=== PATIENT | female | born 1965 | race Caucasian/White ===

== ENCOUNTER 2019-04-27 07:26 | Inpatient (IN) | payer MEDICAID ==
[~2019-04-27 07:26] MED LIST: Midazolam 1 MG/ML 2 ML SDV ONE; Povidone-Iodine 10% Soln 118.25 ML Bottle ONE; Propofol 200 MG/20 ML SDV ONE; fentaNYL 100 MCG/2 ML SDV ONE
[2019-04-27] MEDS ORDERED: Lactated Ringers 1,000 ML IV SCH (07:45)
[2019-04-27] MEDS: Nozin Nasal Sanitizer NASBOTH SCH ×2 (08:16→20:38)
[2019-04-27] MEDS ORDERED: Albuterol/Ipratropium 3.0-0.5 MG/3 ML Neb Soln NEB ONE (08:43)
[2019-04-27] MEDS: Tranexamic Acid 860 MG in Sodium Chloride 0.9% 50 ML IV ONE ×2 (09:29→14:28)
[2019-04-27] MEDS: ceFAZolin 2 GM in Sodium Chloride 0.9% 50 ML IV ONE ×2 (09:30→14:30)
[2019-04-27] MEDS ORDERED: ePHEDrine 50 MG/ML SDV ONE (10:04)
[2019-04-27] MEDS ORDERED: Lactated Ringers 1,000 ML ONE (10:06)
[2019-04-27] MEDS ORDERED: Propofol 200 MG/20 ML SDV ONE (10:46)
[2019-04-27] MEDS ORDERED: Acetaminophen/HYDROcodone 325-5 MG Tab PO PRN (11:09)
[2019-04-27] MEDS ORDERED: Acetaminophen 325 MG Tab PO PRN (11:09)
[2019-04-27] MEDS ORDERED: Acetaminophen/oxyCODONE 325-5 MG Tab PO PRN (11:09)
[2019-04-27] MEDS ORDERED: Magnesium Hydroxide 400 MG/5 ML Susp 30 ML Cup PO PRN ×2 (11:09→12:19)
[2019-04-27] MEDS ORDERED: Ondansetron 4 MG/2 ML SDV IVPUSH PRN ×2 (11:09→12:19)
[2019-04-27] MEDS ORDERED: Morphine 2 MG/ML Syringe IVPUSH PRN (11:09)
[2019-04-27] MEDS ORDERED: Sodium Chloride 0.9% 1,000 ML IV SCH (11:15)
[2019-04-27] MEDS ORDERED: ceFAZolin 1 GM in Sodium Chloride 0.9% 50 ML IV SCH (11:15)
[2019-04-27] MEDS ORDERED: Nicotine 21 MG/24 Hr Patch TRDERM ONE ×2 (11:17→13:15)
[2019-04-27] MEDS ORDERED: Tranexamic Acid 860 MG in Sodium Chloride 0.9% 50 ML IV PRN (12:00)
[2019-04-27] MEDS ORDERED: LORazepam 0.5 MG Tab PO PRN ×2 (12:14→12:19)
[2019-04-27] MEDS: Morphine 2 MG/ML Syringe IVPUSH PRN ×4 (12:59→16:20)
[2019-04-27] MEDS: Acetaminophen/oxyCODONE 325-5 MG Tab PO PRN (13:45)
--- NOTE | 2019-04-27 14:17 | CRLCR ---
INDICATION: Postoperative right hip. COMPARISON: 02/07/2019. TECHNIQUE: Single AP right hip. FINDINGS: The patient is status post right hip arthroplasty. Gas is seen within the joint space and subcutaneous soft tissues compatible with immediately postop, or recent surgery. Bilateral tubal ligation. Vascular calcifications. IMPRESSION: Status post right hip arthroplasty. Dictated by Lukas Shafer MD @ Apr 27 2019 2:13PM (Electronically Signed)
[2019-04-27] MEDS: Acetaminophen/HYDROcodone 325-5 MG Tab PO PRN ×2 (17:23→20:38)
[2019-04-27] MEDS: ceFAZolin 1 GM in Premix Bag 1 BAG IV SCH (17:23)
[2019-04-27] MEDS: Sodium Chloride 0.9% 1,000 ML IV SCH (19:53)
[2019-04-27] MEDS: Docusate Sodium 100 MG Cap PO SCH (20:39)
[2019-04-27] MEDS ORDERED: Docusate Sodium 100 MG Cap PO SCH (21:00)
[2019-04-28] MEDS: ceFAZolin 1 GM in Premix Bag 1 BAG IV SCH ×2 (00:59→09:20)
[2019-04-28] MEDS: Acetaminophen 325 MG Tab PO PRN ×2 (01:00→11:24)
[2019-04-28] MEDS: Sodium Chloride 0.9% 1,000 ML IV SCH (04:09)
[2019-04-28] MEDS: Acetaminophen/HYDROcodone 325-5 MG Tab PO PRN ×3 (04:13→13:35)
[2019-04-28] MEDS: Nozin Nasal Sanitizer NASBOTH SCH ×2 (08:44→20:53)
[2019-04-28] MEDS ORDERED: Enoxaparin 30 MG/0.3 ML Syringe SUBCUT SCH (09:00)
[2019-04-28] MEDS: Docusate Sodium 100 MG Cap PO SCH ×2 (09:20→20:52)
[2019-04-28] MEDS: Enoxaparin 30 MG/0.3 ML Syringe SUBCUT SCH (09:20)
[2019-04-28] MEDS: Nicotine 21 MG/24 Hr Patch TRDERM SCH (11:27)
[2019-04-28] MEDS ORDERED: Sodium Chloride 0.9% 10 ML Syringe FLUSH PRN (13:24)
[2019-04-28] MEDS: Acetaminophen/oxyCODONE 325-5 MG Tab PO PRN ×2 (16:51→20:52)
[2019-04-29] MEDS: Acetaminophen/oxyCODONE 325-5 MG Tab PO PRN ×5 (01:25→21:19)
[2019-04-29] MEDS: Nicotine 21 MG/24 Hr Patch TRDERM SCH (08:12)
[2019-04-29] MEDS: Enoxaparin 30 MG/0.3 ML Syringe SUBCUT SCH (08:12)
[2019-04-29] MEDS: Docusate Sodium 100 MG Cap PO SCH ×2 (08:12→21:19)
[2019-04-29] MEDS: Nozin Nasal Sanitizer NASBOTH SCH ×2 (09:00→21:20)
--- NOTE | 2019-04-29 14:22 | PCM.SURGPN ---
- General Info Date of Service: 04/28/19 Date of Surgery/Procedure: 04/27/19 POD#: 1 Functional Status: Reports: Pain Controlled, Tolerating Diet, Other (pain fairly well controlled) - Review of Systems General: Reports: No Symptoms HEENT: Reports: No Symptoms Pulmonary: Reports: No Symptoms Cardiovascular: Reports: No Symptoms Gastrointestinal: Reports: No Symptoms Musculoskeletal: Reports: Leg Pain Skin: Reports: No Symptoms Neurological: Reports: No Symptoms Psychiatric: Reports: No Symptoms - Patient Data Vitals - Most Recent: Last Vital Signs Temp 38.0 C 04/29/19 12:00 Pulse 85 04/29/19 12:00 Resp 18 04/29/19 12:00 BP 122/69 04/29/19 12:00 Pulse Ox 94 L 04/29/19 12:00 Weight - Most Recent: 83.915 kg I&O - Last 24 Hours: Intake & Output 04/28/19 04/29/19 04/29/19 22:59 06:59 14:59 Intake Total 400 600 300 Balance 400 600 300 Med Orders - Current: Current Medications Acetaminophen (Tylenol) 650 mg PO Q4H PRN PRN Reason: Pain/Fever Last Admin: 04/28/19 11:24 Dose: 650 mg Hydrocodone Bitart/Acetaminophen ([place] 325-5 Mg) 1 tab PO Q3H PRN PRN Reason: Pain Last Admin: 04/28/19 13:35 Dose: 1 tab Bandage/Support Products ( Nasal Applique Cutter) 1 applic NASBOTH BID [facility] Last Admin: 04/29/19 09:00 Dose: 1 applic Docusate Sodium (Colace) 100 mg PO BID [facility] Last Admin: 04/29/19 08:12 Dose: 100 mg Enoxaparin Sodium (Lovenox) 30 mg SUBCUT DAILY [facility] Last Admin: 04/29/19 08:12 Dose: 30 mg Lorazepam (Ativan) 0.5 mg PO TID PRN PRN Reason: Anxiety Last Admin: 04/27/19 17:30 Dose: 0.5 mg Magnesium Hydroxide (Milk Of Magnesia) 30 ml PO BID PRN PRN Reason: Constipation Morphine Sulfate (Morphine) 2 mg IVPUSH Q1H PRN PRN Reason: Breakthrough Pain Last Admin: 04/27/19 16:20 Dose: 2 mg Nicotine (Habitrol) 21 mg TRDERM DAILY [facility] Last Admin: 04/29/19 08:12 Dose: 21 mg Ondansetron HCl (Zofran) 4 mg IVPUSH Q6H PRN PRN Reason: Nausea/Vomiting Last Admin: 04/27/19 17:28 Dose: 4 mg Oxycodone/Acetaminophen (Percocet 325-5 Mg) 2 tab PO Q4H PRN PRN Reason: Pain Last Admin: 04/29/19 12:55 Dose: 2 tab Sodium Chloride (Saline Flush) 10 ml FLUSH ASDIRECTED PRN PRN Reason: Keep Vein Open Discontinued Medications Acetaminophen (Tylenol) 650 mg PO Q4H PRN PRN Reason: Pain/Fever Hydrocodone Bitart/Acetaminophen ([place] 325-5 Mg) 1 tab PO Q3H PRN PRN Reason: Pain Albuterol/Ipratropium (Duoneb 3.0-0.5 Mg/3 Ml) 3 ml NEB ONETIME ONE Stop: 04/27/19 08:44 Last Admin: 04/27/19 08:56 Dose: 3 ml Docusate Sodium (Colace) 100 mg PO BID [facility] Enoxaparin Sodium (Lovenox) 30 mg SUBCUT DAILY [facility] Ephedrine Sulfate (Ephedrine Sulfate) Confirm Administered Dose 50 mg .ROUTE .STK-MED ONE Stop: 04/27/19 10:05 Fentanyl (Sublimaze) Confirm Administered Dose 100 mcg .ROUTE .STK-MED ONE Stop: 04/27/19 07:21 Cefazolin Sodium 2 gm/ Sodium (Chloride) 50 mls @ 100 mls/hr IV ONETIME ONE Stop: 04/27/19 13:04 Last Admin: 04/27/19 14:30 Dose: Not Given Lactated Ringer's (Ringers, Lactated) 1,000 mls @ 75 mls/hr IV ASDIRECTED [facility] Last Admin: 04/27/19 08:51 Dose: 75 mls/hr Tranexamic Acid 860 mg/ Sodium (Chloride) 58.6 mls @ 234.4 mls/hr IV ONETIME ONE Stop: 04/27/19 09:14 Last Admin: 04/27/19 14:28 Dose: Not Given Tranexamic Acid 860 mg/ Sodium (Chloride) 58.6 mls @ 234.4 mls/hr IV ONETIME PRN PRN Reason: PER PROVIDER Stop: 04/27/19 14:00 Lactated Ringer's (Ringers, Lactated) Confirm Administered Dose 1,000 mls @ as directed .ROUTE .STK-MED ONE Stop: 04/27/19 10:07 Cefazolin Sodium 1 gm/ Sodium (Chloride) 50 mls @ 200 mls/hr IV Q8H [facility] Stop: 04/28/19 03:29 Last Admin: 04/27/19 14:39 Dose: Not Given Sodium Chloride (Normal Saline) 1,000 mls @ 125 mls/hr IV ASDIRECTED [facility] Cefazolin Sodium/Dextrose 1 gm (/ Premix) 50 mls @ 200 mls/hr IV Q8H [facility] Stop: 04/28/19 10:14 Last Admin: 04/28/19 09:20 Dose: 200 mls/hr Sodium Chloride (Normal Saline) 1,000 mls @ 125 mls/hr IV ASDIRECTED [facility] Last Admin: 04/28/19 04:09 Dose: 125 mls/hr Lorazepam (Ativan) 0.5 mg PO TID PRN PRN Reason: Anxiety Magnesium Hydroxide (Milk Of Magnesia) 30 ml PO BID PRN PRN Reason: Constipation Midazolam HCl (Versed 1 Mg/Ml) Confirm Administered Dose 2 mg .ROUTE .STK-MED ONE Stop: 04/27/19 07:21 Morphine Sulfate (Morphine) 2 mg IVPUSH Q1H PRN PRN Reason: Breakthrough Pain Nicotine (Habitrol) 21 mg TRDERM ONETIME ONE Stop: 04/27/19 11:18 Last Admin: 04/27/19 14:39 Dose: Not Given Nicotine (Habitrol) 21 mg TRDERM ONETIME ONE Stop: 04/27/19 13:16 Last Admin: 04/27/19 14:39 Dose: 21 mg Ondansetron HCl (Zofran) 4 mg IVPUSH Q6H PRN PRN Reason: Nausea/Vomiting Oxycodone/Acetaminophen (Percocet 325-5 Mg) 2 tab PO Q4H PRN PRN Reason: Pain Povidone Iodine (Betadine 10% Soln) Confirm Administered Dose 1 ml .ROUTE .STK- MED ONE Stop: 04/27/19 06:37 Last Admin: 04/27/19 10:13 Dose: 40 ml Propofol (Diprivan 20 Ml) Confirm Administered Dose 200 mg .ROUTE .STK-MED ONE Stop: 04/27/19 07:21 Propofol (Diprivan 20 Ml) Confirm Administered Dose 200 mg .ROUTE .STK-MED ONE Stop: 04/27/19 10:47 - Exam Wound/Incisions: Dressing Dry and Intact General: Alert, Oriented HEENT: Pupils Equal Neck: Supple Lungs: Clear to Auscultation, Normal Respiratory Effort Cardiovascular: Regular Rate, Regular Rhythm GI/Abdominal Exam: Normal Bowel Sounds, Soft, No Distention Extremities: No Pedal Edema, Other (Elizabeth's negative.) Skin: Warm, Dry, Intact Neurological: No New Focal Deficit Psy/Mental Status: Alert, Normal Affect, Normal Mood - Problem List & Annotations (1) Osteoarthritis of right hip SNOMED Code(s): 747501460471738 Code(s): M16.11 - UNILATERAL PRIMARY OSTEOARTHRITIS, RIGHT HIP Status: Acute Current Visit: Yes Qualifiers: Osteoarthritis type: primary Qualified Code(s): M16.11 - Unilateral primary osteoarthritis, right hip (2) Status post total hip replacement, right SNOMED Code(s): 538284349822, 219561741670 Code(s): Z96.641 - PRESENCE OF RIGHT ARTIFICIAL HIP JOINT Status: Acute Current Visit: Yes - Problem List Review Problem List Initiated/Reviewed/Updated: Yes - My Orders Last 24 Hours: Active Orders 24 hr Category Date Time Status Sodium Chloride 0.9% [Saline Flush] Med 04/28/19 13:24 Active 10 ml FLUSH ASDIRECTED PRN Saline Lock Insert [OM.PC] Routine Oth 04/28/19 13:24 Ordered Medication Orders Acetaminophen (Tylenol) 650 mg PO Q4H PRN PRN Reason: Pain/Fever Last Admin: 04/28/19 11:24 Dose: 650 mg Admin: 04/28/19 01:00 Dose: 650 mg Hydrocodone Bitart/Acetaminophen ([place] 325-5 Mg) 1 tab PO Q3H PRN PRN Reason: Pain Last Admin: 04/28/19 13:35 Dose: 1 tab Admin: 04/28/19 07:35 Dose: 1 tab Admin: 04/28/19 04:13 Dose: 1 tab Admin: 04/27/19 20:38 Dose: 1 tab Admin: 04/27/19 17:23 Dose: 1 tab Bandage/Support Products ( Nasal Applique Cutter) 1 applic NASBOTH BID [facility] Last Admin: 04/29/19 09:00 Dose: 1 applic Admin: 04/28/19 20:53 Dose: 1 applic Admin: 04/28/19 08:44 Dose: 1 applic Admin: 04/27/19 20:38 Dose: 1 applic Admin: 04/27/19 08:16 Dose: 1 applic Docusate Sodium (Colace) 100 mg PO BID [facility] Last Admin: 04/29/19 08:12 Dose: 100 mg Admin: 04/28/19 20:52 Dose: 100 mg Admin: 04/28/19 09:20 Dose: 100 mg Admin: 04/27/19 20:39 Dose: 100 mg Enoxaparin Sodium (Lovenox) 30 mg SUBCUT DAILY [facility] Last Admin: 04/29/19 08:12 Dose: 30 mg Admin: 04/28/19 09:20 Dose: 30 mg Lorazepam (Ativan) 0.5 mg PO TID PRN PRN Reason: Anxiety Last Admin: 04/27/19 17:30 Dose: 0.5 mg Magnesium Hydroxide (Milk Of Magnesia) 30 ml PO BID PRN PRN Reason: Constipation Morphine Sulfate (Morphine) 2 mg IVPUSH Q1H PRN PRN Reason: Breakthrough Pain Last Admin: 04/27/19 16:20 Dose: 2 mg Admin: 04/27/19 15:19 Dose: 2 mg Admin: 04/27/19 14:21 Dose: 2 mg Admin: 04/27/19 12:59 Dose: 2 mg Nicotine (Habitrol) 21 mg TRDERM DAILY [facility] Last Admin: 04/29/19 08:12 Dose: 21 mg Admin: 04/28/19 11:27 Dose: 21 mg Ondansetron HCl (Zofran) 4 mg IVPUSH Q6H PRN PRN Reason: Nausea/Vomiting Last Admin: 04/27/19 17:28 Dose: 4 mg Oxycodone/Acetaminophen (Percocet 325-5 Mg) 2 tab PO Q4H PRN PRN Reason: Pain Last Admin: 04/29/19 12:55 Dose: 2 tab Admin: 04/29/19 06:57 Dose: 2 tab Admin: 04/29/19 01:25 Dose: 2 tab Admin: 04/28/19 20:52 Dose: 2 tab Admin: 04/28/19 16:51 Dose: 2 tab Admin: 04/27/19 13:45 Dose: 2 tab Sodium Chloride (Saline Flush) 10 ml FLUSH ASDIRECTED PRN PRN Reason: Keep Vein Open - Assessment Assessment (Free Text/Narrative):: Tolerated procedure well, trying to find best regimen for pain control, has been out of bed - Plan Plan (Free Text/Narrative):: D/C [place], saline lock IV, continue OT/PT
--- NOTE | 2019-04-29 14:25 | PCM.SURGPN ---
- General Info Date of Service: 04/29/19 Date of Surgery/Procedure: 04/27/19 POD#: 2 Functional Status: Reports: Pain Controlled, Tolerating Diet, Ambulating, Urinating - Review of Systems General: Reports: No Symptoms HEENT: Reports: No Symptoms Pulmonary: Reports: No Symptoms Cardiovascular: Reports: No Symptoms Gastrointestinal: Reports: No Symptoms Genitourinary: Reports: No Symptoms Musculoskeletal: Reports: Leg Pain Skin: Reports: No Symptoms Neurological: Reports: No Symptoms Psychiatric: Reports: No Symptoms - Patient Data Vitals - Most Recent: Last Vital Signs Temp 38.0 C 04/29/19 12:00 Pulse 85 04/29/19 12:00 Resp 18 04/29/19 12:00 BP 122/69 04/29/19 12:00 Pulse Ox 94 L 04/29/19 12:00 Weight - Most Recent: 83.915 kg I&O - Last 24 Hours: Intake & Output 04/28/19 04/29/19 04/29/19 22:59 06:59 14:59 Intake Total 400 600 300 Balance 400 600 300 Med Orders - Current: Current Medications Acetaminophen (Tylenol) 650 mg PO Q4H PRN PRN Reason: Pain/Fever Last Admin: 04/28/19 11:24 Dose: 650 mg Hydrocodone Bitart/Acetaminophen ([place] 325-5 Mg) 1 tab PO Q3H PRN PRN Reason: Pain Last Admin: 04/28/19 13:35 Dose: 1 tab Bandage/Support Products ( Nasal Sleep Manager) 1 applic NASBOTH BID [facility] Last Admin: 04/29/19 09:00 Dose: 1 applic Docusate Sodium (Colace) 100 mg PO BID [facility] Last Admin: 04/29/19 08:12 Dose: 100 mg Enoxaparin Sodium (Lovenox) 30 mg SUBCUT DAILY [facility] Last Admin: 04/29/19 08:12 Dose: 30 mg Lorazepam (Ativan) 0.5 mg PO TID PRN PRN Reason: Anxiety Last Admin: 04/27/19 17:30 Dose: 0.5 mg Magnesium Hydroxide (Milk Of Magnesia) 30 ml PO BID PRN PRN Reason: Constipation Morphine Sulfate (Morphine) 2 mg IVPUSH Q1H PRN PRN Reason: Breakthrough Pain Last Admin: 04/27/19 16:20 Dose: 2 mg Nicotine (Habitrol) 21 mg TRDERM DAILY [facility] Last Admin: 04/29/19 08:12 Dose: 21 mg Ondansetron HCl (Zofran) 4 mg IVPUSH Q6H PRN PRN Reason: Nausea/Vomiting Last Admin: 04/27/19 17:28 Dose: 4 mg Oxycodone/Acetaminophen (Percocet 325-5 Mg) 2 tab PO Q4H PRN PRN Reason: Pain Last Admin: 04/29/19 12:55 Dose: 2 tab Sodium Chloride (Saline Flush) 10 ml FLUSH ASDIRECTED PRN PRN Reason: Keep Vein Open Discontinued Medications Acetaminophen (Tylenol) 650 mg PO Q4H PRN PRN Reason: Pain/Fever Hydrocodone Bitart/Acetaminophen ([place] 325-5 Mg) 1 tab PO Q3H PRN PRN Reason: Pain Albuterol/Ipratropium (Duoneb 3.0-0.5 Mg/3 Ml) 3 ml NEB ONETIME ONE Stop: 04/27/19 08:44 Last Admin: 04/27/19 08:56 Dose: 3 ml Docusate Sodium (Colace) 100 mg PO BID [facility] Enoxaparin Sodium (Lovenox) 30 mg SUBCUT DAILY [facility] Ephedrine Sulfate (Ephedrine Sulfate) Confirm Administered Dose 50 mg .ROUTE .STK-MED ONE Stop: 04/27/19 10:05 Fentanyl (Sublimaze) Confirm Administered Dose 100 mcg .ROUTE .STK-MED ONE Stop: 04/27/19 07:21 Cefazolin Sodium 2 gm/ Sodium (Chloride) 50 mls @ 100 mls/hr IV ONETIME ONE Stop: 04/27/19 13:04 Last Admin: 04/27/19 14:30 Dose: Not Given Lactated Ringer's (Ringers, Lactated) 1,000 mls @ 75 mls/hr IV ASDIRECTED [facility] Last Admin: 04/27/19 08:51 Dose: 75 mls/hr Tranexamic Acid 860 mg/ Sodium (Chloride) 58.6 mls @ 234.4 mls/hr IV ONETIME ONE Stop: 04/27/19 09:14 Last Admin: 04/27/19 14:28 Dose: Not Given Tranexamic Acid 860 mg/ Sodium (Chloride) 58.6 mls @ 234.4 mls/hr IV ONETIME PRN PRN Reason: PER PROVIDER Stop: 04/27/19 14:00 Lactated Ringer's (Ringers, Lactated) Confirm Administered Dose 1,000 mls @ as directed .ROUTE .STK-MED ONE Stop: 04/27/19 10:07 Cefazolin Sodium 1 gm/ Sodium (Chloride) 50 mls @ 200 mls/hr IV Q8H [facility] Stop: 04/28/19 03:29 Last Admin: 04/27/19 14:39 Dose: Not Given Sodium Chloride (Normal Saline) 1,000 mls @ 125 mls/hr IV ASDIRECTED [facility] Cefazolin Sodium/Dextrose 1 gm (/ Premix) 50 mls @ 200 mls/hr IV Q8H [facility] Stop: 04/28/19 10:14 Last Admin: 04/28/19 09:20 Dose: 200 mls/hr Sodium Chloride (Normal Saline) 1,000 mls @ 125 mls/hr IV ASDIRECTED [facility] Last Admin: 04/28/19 04:09 Dose: 125 mls/hr Lorazepam (Ativan) 0.5 mg PO TID PRN PRN Reason: Anxiety Magnesium Hydroxide (Milk Of Magnesia) 30 ml PO BID PRN PRN Reason: Constipation Midazolam HCl (Versed 1 Mg/Ml) Confirm Administered Dose 2 mg .ROUTE .STK-MED ONE Stop: 04/27/19 07:21 Morphine Sulfate (Morphine) 2 mg IVPUSH Q1H PRN PRN Reason: Breakthrough Pain Nicotine (Habitrol) 21 mg TRDERM ONETIME ONE Stop: 04/27/19 11:18 Last Admin: 04/27/19 14:39 Dose: Not Given Nicotine (Habitrol) 21 mg TRDERM ONETIME ONE Stop: 04/27/19 13:16 Last Admin: 04/27/19 14:39 Dose: 21 mg Ondansetron HCl (Zofran) 4 mg IVPUSH Q6H PRN PRN Reason: Nausea/Vomiting Oxycodone/Acetaminophen (Percocet 325-5 Mg) 2 tab PO Q4H PRN PRN Reason: Pain Povidone Iodine (Betadine 10% Soln) Confirm Administered Dose 1 ml .ROUTE .STK- MED ONE Stop: 04/27/19 06:37 Last Admin: 04/27/19 10:13 Dose: 40 ml Propofol (Diprivan 20 Ml) Confirm Administered Dose 200 mg .ROUTE .STK-MED ONE Stop: 04/27/19 07:21 Propofol (Diprivan 20 Ml) Confirm Administered Dose 200 mg .ROUTE .STK-MED ONE Stop: 04/27/19 10:47 - Exam Wound/Incisions: Healing Well, No Drainage General: Alert, Oriented HEENT: Pupils Equal, Pupils Reactive, EOMI, Mucous Membr. Moist/[place] Neck: Supple Lungs: Clear to Auscultation, Normal Respiratory Effort Cardiovascular: Regular Rate, Regular Rhythm GI/Abdominal Exam: Normal Bowel Sounds, Soft, Non-Tender, No Distention Extremities: No Pedal Edema, Other (no lower leg sweling) Skin: Warm, Dry Neurological: No New Focal Deficit Psy/Mental Status: Alert, Normal Affect, Normal Mood - Problem List & Annotations (1) Osteoarthritis of right hip SNOMED Code(s): 922484178020496 Code(s): M16.11 - UNILATERAL PRIMARY OSTEOARTHRITIS, RIGHT HIP Status: Acute Current Visit: Yes Qualifiers: Osteoarthritis type: primary Qualified Code(s): M16.11 - Unilateral primary osteoarthritis, right hip (2) Status post total hip replacement, right SNOMED Code(s): 454451331214, 902722861690 Code(s): Z96.641 - PRESENCE OF RIGHT ARTIFICIAL HIP JOINT Status: Acute Current Visit: Yes - Problem List Review Problem List Initiated/Reviewed/Updated: Yes - My Orders Last 24 Hours: Active Orders 24 hr Category Date Time Status Sodium Chloride 0.9% [Saline Flush] Med 04/28/19 13:24 Active 10 ml FLUSH ASDIRECTED PRN Saline Lock Insert [OM.PC] Routine Oth 04/28/19 13:24 Ordered Medication Orders Acetaminophen (Tylenol) 650 mg PO Q4H PRN PRN Reason: Pain/Fever Last Admin: 04/28/19 11:24 Dose: 650 mg Admin: 04/28/19 01:00 Dose: 650 mg Hydrocodone Bitart/Acetaminophen ([place] 325-5 Mg) 1 tab PO Q3H PRN PRN Reason: Pain Last Admin: 04/28/19 13:35 Dose: 1 tab Admin: 04/28/19 07:35 Dose: 1 tab Admin: 04/28/19 04:13 Dose: 1 tab Admin: 04/27/19 20:38 Dose: 1 tab Admin: 04/27/19 17:23 Dose: 1 tab Bandage/Support Products ( Nasal Sleep Manager) 1 applic NASBOTH BID [facility] Last Admin: 04/29/19 09:00 Dose: 1 applic Admin: 04/28/19 20:53 Dose: 1 applic Admin: 04/28/19 08:44 Dose: 1 applic Admin: 04/27/19 20:38 Dose: 1 applic Admin: 04/27/19 08:16 Dose: 1 applic Docusate Sodium (Colace) 100 mg PO BID [facility] Last Admin: 04/29/19 08:12 Dose: 100 mg Admin: 04/28/19 20:52 Dose: 100 mg Admin: 04/28/19 09:20 Dose: 100 mg Admin: 04/27/19 20:39 Dose: 100 mg Enoxaparin Sodium (Lovenox) 30 mg SUBCUT DAILY [facility] Last Admin: 04/29/19 08:12 Dose: 30 mg Admin: 04/28/19 09:20 Dose: 30 mg Lorazepam (Ativan) 0.5 mg PO TID PRN PRN Reason: Anxiety Last Admin: 04/27/19 17:30 Dose: 0.5 mg Magnesium Hydroxide (Milk Of Magnesia) 30 ml PO BID PRN PRN Reason: Constipation Morphine Sulfate (Morphine) 2 mg IVPUSH Q1H PRN PRN Reason: Breakthrough Pain Last Admin: 04/27/19 16:20 Dose: 2 mg Admin: 04/27/19 15:19 Dose: 2 mg Admin: 04/27/19 14:21 Dose: 2 mg Admin: 04/27/19 12:59 Dose: 2 mg Nicotine (Habitrol) 21 mg TRDERM DAILY [facility] Last Admin: 04/29/19 08:12 Dose: 21 mg Admin: 04/28/19 11:27 Dose: 21 mg Ondansetron HCl (Zofran) 4 mg IVPUSH Q6H PRN PRN Reason: Nausea/Vomiting Last Admin: 04/27/19 17:28 Dose: 4 mg Oxycodone/Acetaminophen (Percocet 325-5 Mg) 2 tab PO Q4H PRN PRN Reason: Pain Last Admin: 04/29/19 12:55 Dose: 2 tab Admin: 04/29/19 06:57 Dose: 2 tab Admin: 04/29/19 01:25 Dose: 2 tab Admin: 04/28/19 20:52 Dose: 2 tab Admin: 04/28/19 16:51 Dose: 2 tab Admin: 04/27/19 13:45 Dose: 2 tab Sodium Chloride (Saline Flush) 10 ml FLUSH ASDIRECTED PRN PRN Reason: Keep Vein Open - Assessment Assessment (Free Text/Narrative):: Better today, up in room and in lima, able to shower, incision looks good, no drainage - Plan Plan (Free Text/Narrative):: Continue PT/OT today, work on transfers out of bed, new dressing, anticipate home in AM with outpatient PT in [place].
--- NOTE | 2019-04-29 15:53 | OR ---
DATE OF PROCEDURE: 04/27/2019 SURGEON: Benito Simmons MD PREOPERATIVE DIAGNOSIS: Osteoarthritis, right hip. POSTOPERATIVE DIAGNOSIS: Osteoarthritis, right hip with degenerative labral tear. ANESTHESIA: Spinal with sedation. INDICATIONS: Carin is a 54-year-old female, who has had a fairly rapid progression of right hip pain over the past 6 months. She has failed conservative treatment with therapy and injection. She is having increasing difficulty with ambulation and any prolonged sitting. 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 She now presents for right total hip arthroplasty. Risks, benefits, potential complications of the procedure were discussed. PROCEDURE IN DETAIL: After adequate anesthesia was obtained, the patient was placed in a lateral decubitus position and secured with a hip positioner. The right hip and leg were then prepped and draped in a sterile fashion. An incision was made over the greater trochanter, carried down through the subcutaneous tissues, and hemostasis was obtained with electrocautery. Tensor fascia was split in line with its fibers and a Charnley retractor was then placed. Short external rotators were taken off the greater trochanter with electrocautery and the hip was internally rotated. The capsule was divided in a T-fashion. Moderate to large effusion was present within the joint. The hip was dislocated presenting the femoral head. Retractor was placed about the femoral neck and an oscillating saw was used to resect the femoral neck and remove the head. Degenerative changes were noted. Retractors were then placed about the acetabulum. A fairly large redundant labrum was present with degenerative tear in the superior aspect. The labrum was excised. Soft tissues were cleared from the central portion of the acetabulum. The acetabulum was then sequentially reamed to a size 52. Excellent subchondral bone was present. A 52 mm Neel Trabecular Metal Continuum cup was then press-fit into place. This had excellent purchase. This was irrigated and a polyethylene liner was placed for a 36 mm head. Attention was returned to the femur. A box osteotome was used to remove the lateral femoral neck cortex. A hand awl was placed down the canal and the lateralizing reamer was used. The canal was then sequentially broached to a size 9 stem. The 9 stem was then placed down the canal. This initially seemed to sit a bit high with the center of rotation just slightly proximal to the tip of the greater trochanter. A trial reduction was done with a - 3.5 neck length and this showed full range of motion with excellent stability, but appeared to be just a bit long. Stem was removed and the canal was rebroached. The 9 broach was tapped several millimeters below the level of the femoral neck cut. The femoral neck cut was re-evaluated and was not found to be excessive. The stem was then reinserted tapping this further down into the canal than the previous location. It was felt that it could not be advanced any further without risk of fracture of the calcar. This was again trialed with -3.5 neck length. It continued to show full range of motion with excellent stability in flexion, adduction, and internal rotation. Better position for limb length. It was felt that any other modifications would not be satisfactory as downsizing the stem would result in the stem subsiding significantly into the canal. Trial was removed and the final -3.5 neck length 36 mm ceramic head was placed on the trunnion. This was reduced. The hip was then irrigated with pulse lavage. This was followed by an irrigation with a dilute Betadine solution, which was left in place for a two 2.5 minutes and then irrigated out with pulse lavage. External rotators were reattached to the greater trochanter with a #2 Ethibond. Tensor fascia was closed with #2 Ethibond in a running locking fashion. The skin was closed with 2-0 Vicryl and a running 3-0 Monocryl. Steri-Strips were applied. Sterile dressing was then applied. The patient tolerated the procedure well. There were no complications. She was taken from the operating room in stable condition. Benito Simmons MD /[id number]
[2019-04-30] MEDS: Acetaminophen/oxyCODONE 325-5 MG Tab PO PRN ×3 (01:30→09:33)
[2019-04-30] MEDS: Enoxaparin 30 MG/0.3 ML Syringe SUBCUT SCH (09:30)
[2019-04-30] MEDS: Nozin Nasal Sanitizer NASBOTH SCH (09:31)
[2019-04-30] MEDS: Nicotine 21 MG/24 Hr Patch TRDERM SCH (09:31)
[2019-04-30] MEDS: Docusate Sodium 100 MG Cap PO SCH (09:31)
== END 2019-04-30 10:11 | disposition home or self-care (01) | DRG 470 ==
LOC: JP.SDS 07:26 → JP.MS 07:26 → EDSTATUS 08:30 → JP.MS 11:09
PROVIDERS: ADMIT Specialist; ATTEND Specialist
PROC: 0SR902A Replacement of Right Hip Joint with Metal on Polyethylene Synthetic Substitute, Uncemented, Open Approach (ICD-10-PCS; principal; 2019-04-27)
DX: M16.11 Unilateral primary osteoarthritis, right hip (principal); M25.751 Osteophyte, right hip
CPT/HCPCS: 36415; 73502-RT; 80053; 85027; 86850; 86900; 86901; 94640; 97110-GP; 97161-GP; 97165-GO; 97530-GP; 97535-GP; A9270-GY; C1776; J0690; J1650; J2250; J2270; J2405; J2704; J3010; J7030; J7050; J7120; J7620-GY

== ENCOUNTER 2020-02-09 10:13 | Emergency (ER) | payer MEDICAID ==
--- NOTE | 2020-02-09 11:21 | EDM.PDOC ---
ED HPI GENERAL MEDICAL PROBLEM - General Chief Complaint: Chest Pain Stated Complaint: SHARP CHEST PAINS Time Seen by Provider: 02/09/20 11:05 Source of Information: Reports: Patient History Limitations: Reports: No Limitations - History of Present Illness INITIAL COMMENTS - FREE TEXT/NARRATIVE: 54-year-old female with escalating chest pain with activity over the past 2 months. She goes on a bike ride every morning, and develops substernal pain which she has to "walk off for a while". No shortness of breath but she gets "clammy". She also gets the same sensation if she is walking for any distance while carrying a significant weight such as groceries. She is a smoker, she has never had any cardiac evaluation. At times it gets bad enough where she feels like somebody "punched her between the shoulder blades". She had another episode this morning so called the clinic and they could not get her in until the which is 2 weeks, so she came here. She has no pain, monitor shows normal sinus rhythm. Onset: Unknown/Unsure Duration: Week(s): (Symptoms have been slowly worsening for the past 2 months) Location: Reports: Chest Associated Symptoms: Reports: Diaphoresis. 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: Musculoskeletal History: Reports: Other (See Below) Other Musculoskeletal History: s/p RTHA 04/27/19 Neurological History: Reports: None Psychiatric History: Reports: None Endocrine/Metabolic History: Reports: Obesity/BMI 30+ Hematologic History: Reports: None Immunologic History: Reports: None Oncologic (Cancer) History: Reports: None Dermatologic History: Reports: None - Past Surgical History Head Surgeries/Procedures: Reports: None GI Surgical History: Reports: Cholecystectomy, Colonoscopy, Polypectomy Female Surgical History: Reports: Tubal Ligation Endocrine Surgical History: Reports: None Musculoskeletal Surgical History: Reports: None, Hip Replacement Social & Family History - Family History Cardiac: Reports: [place] Musculoskeletal: Reports: Arthritis, Other (See Below) Other Musculoskeletal Family History: mother had bilat hip replacements Oncologic: Reports: Lung, Other (See Below) Other Oncologic Family History: stomach - Tobacco Use Smoking Status *Q: Current Every Day Smoker Years of Tobacco use: 38 Packs/Tins Daily: 1 - Caffeine Use Caffeine Use: Reports: None - Recreational Drug Use Recreational Drug Use: No ED ROS GENERAL - Review of Systems Review Of Systems: See Below Constitutional: Denies: Fever, Chills HEENT: Reports: No Symptoms Respiratory: Denies: Shortness of Breath, Cough Cardiovascular: Reports: Chest Pain. Denies: Dyspnea on Exertion GI/Abdominal: Reports: Abdominal Pain (Epigastric area). Denies: Nausea : Reports: No Symptoms Skin: Reports: Diaphoresis Neurological: Denies: Dizziness, Headache, Difficulty Walking, Weakness ED EXAM, GENERAL - Physical Exam Exam: See Below Exam Limited By: No Limitations General Appearance: Alert, No Apparent Distress Head: Atraumatic Neck: Supple, Non-Tender Respiratory/Chest: Lungs Clear Cardiovascular: Regular Rate, Rhythm, No Murmur. No: Extra Beats GI/Abdominal: Soft, Non-Tender Extremities: Normal Inspection. No: Pedal Edema Neurological: Alert, Oriented, No Motor/Sensory Deficits Psychiatric: Normal Affect, Normal Mood Skin Exam: Warm, Dry EKG INTERPRETATION Rhythm: NSR Course - Vital Signs Last Recorded V/S: Last Vital Signs Temp 96.8 F L 02/09/20 10:41 Pulse 60 02/09/20 11:05 Resp 17 02/09/20 12:41 BP 124/75 02/09/20 12:41 Pulse Ox 96 02/09/20 12:41 - Orders/Labs/Meds Orders: Active Orders 24 hr Category Date Time Status EKG 12 Lead [EK] Routine Ther 02/09/20 11:36 Ordered Labs: Laboratory Tests 02/09/20 02/09/20 Range/Units 11:25 11:25 WBC 7.7 (4.5-11.0) K/uL RBC 4.64 (3.30-5.50) M/uL Hgb 14.5 (12.0-15.0) g/dL Hct 43.2 (36.0-48.0) % MCV 93 (80-98) fL MCH 31 (27-31) pg MCHC 34 (32-36) % Plt Count 298 (150-400) K/uL Neut % (Auto) 57 (36-66) % Lymph % (Auto) 33 (24-44) % [place] % (Auto) 7 H (2-6) % Eos % (Auto) 3 (2-4) % Baso % (Auto) 1 (0-1) % Sodium 141 (140-148) mmol/L Potassium 3.8 (3.6-5.2) mmol/L Chloride 104 (100-108) mmol/L Carbon Dioxide 28 (21-32) mmol/L Anion Gap 8.8 (5.0-14.0) mmol/L BUN 14 (7-18) mg/dL Creatinine 0.9 (0.6-1.0) mg/dL Est Cr Clr Drug Dosing 60.27 mL/min Estimated GFR (MDRD) > 60 (>60) Glucose 102 (74-106) mg/dL Calcium 8.9 (8.5-10.1) mg/dL Troponin I < 0.017 (0.000-0.056) ng/mL - Re-Assessments/Exams Free Text/Narrative Re-Assessment/Exam: 02/09/20 11:44 EKG was normal, CBC BMP and troponin were obtained. History is very concerning for worsening stable angina. May discuss with cardiology after labs return. 02/09/20 12:39 Labs were normal including a negative troponin. Her case was discussed with cardiology in [place], recommendations were for 81 mg of aspirin daily, 10 mg of atorvastatin daily, and 12.5 mg of metoprolol twice daily. They are going to contact her for cardiology consultation in the near future. Departure - Departure Time of Disposition: 12:58 Disposition: Home, Self-Care 01 Clinical Impression: Stable angina - Discharge Information Instructions: Angina, [id number] Referrals: PCP,None [Primary Care Provider] - Forms: ED Department Discharge Care Plan Goals: Take 81 mg of aspirin daily along with your 2 prescribed medications. You will be contacted by cardiology in [place] in the near future for a recheck appointment and discuss further evaluation. Return to ER anytime if pain recurs and is persistent or you develop other concerns. Sepsis Event Note (ED) - Evaluation Sepsis Screening Result: No Definite Risk - Focused Exam Vital Signs: Vital Signs Temp Pulse Resp BP Pulse Ox 02/09/20 12:41 17 124/75 96 02/09/20 11:05 60 16 122/68 93 L 02/09/20 10:45 64 14 148/73 H 94 L 02/09/20 10:41 96.8 F L 66 16 158/70 H 96 - My Orders Last 24 Hours: My Active Orders 02/09/20 11:36 EKG 12 Lead [EK] Routine - Assessment/Plan Last 24 Hours: My Active Orders 02/09/20 11:36 EKG 12 Lead [EK] Routine
== END 2020-02-09 12:58 | disposition home or self-care (01) ==
LOC: JP.ED 10:13
DX: I20.8 Other forms of angina pectoris (principal); E66.9 Obesity, unspecified; F17.210 Nicotine dependence, cigarettes, uncomplicated; Z68.31 Body mass index [BMI] 31.0-31.9, adult; Z98.51 Tubal ligation status; Z90.89 Acquired absence of other organs
CPT/HCPCS: 36415; 80048; 84484; 85025; 93005; 99285-25